=== PATIENT | male | born 1965 | race Hispanic/Latino ===

== ENCOUNTER 2017-05-13 13:43 | Observation (INO) | payer MEDICAID ==
--- NOTE | 2017-05-13 14:28 | C.PDOC ---
History Of Present Illness 51 y/o M c PMHx HTN, HLD, DM, gout, chronic back pain, Elyssa's thyroid disease, low testosterone (on androgel), multiple orthopedic surgeries, CKD p/w chest pain and bilateral leg swelling. Patient states both of his legs have swollen for 3 days. Has never had these symptoms before. Swelling improves with elevation of the legs. Denies trauma, redness or induration, injury, long travel , previous DVT. He states that last night, he began having a focal, L sided, sharp chest pain that has been constant, nonradiating, and not allieved or exacerbated by breathing or position. He does note that he seems to have to try harder to get a full breath. Denies previous PE. PMD [facility] Time Seen by Provider: 05/13/17 14:09 Chief Complaint (Nursing): Chest Pain Past Medical History Vital Signs: Last Vital Signs Temp 98.9 F 05/13/17 16:39 Pulse 75 05/13/17 16:39 Resp 16 05/13/17 16:39 BP 107/72 05/13/17 16:39 Pulse Ox 95 05/13/17 17:10 - Medical History PMH: Anxiety, Asthma, Back Problems, COPD, Depression, Diabetes, HTN, Hypercholesterolemia, Hyperlipidemia, Chronic Kidney Disease Family History: States: Unknown Family Hx - Social History Hx Tobacco Use: No Hx Alcohol Use: No Hx Substance Use: No - Immunization History Hx Tetanus Toxoid Vaccination: No Hx Influenza Vaccination: Yes Hx Pneumococcal Vaccination: Yes Review Of Systems Except As Marked, All Systems Reviewed And Found Negative. Constitutional: Negative for: Fever Cardiovascular: Positive for: Chest Pain Gastrointestinal: Negative for: Vomiting Physical Exam - Physical Exam Additional Physical Exam Comments: Constitutional: No acute distress. Head: Normocephalic. Atraumatic. Eyes: PERRL. ENT: Moist mucous membranes. Neck: Supple. Cardiovascular: Regular rate. Radial pulse 2+ bilaterally. Chest: No tenderness. Respiratory: Clear to auscultation bilaterally. GI: Soft. Nontender. Nondistended. Back: No CVA tenderness. Musculoskeletal: No tenderness of extremities. Bilateral pitting edema of lower extremities. Skin: No rash. Neurologic: Alert, no focal deficit. ED Course And Treatment - Laboratory Results Result Diagrams: 05/13/17 14:51 05/13/17 14:51 O2 Sat by Pulse Oximetry: 95 ED OBSERVATION Date of observation admission: 05/13/17 Time of observation admission: 14:24 - Observation admission statement Patient is being placed in observation because:: Chest pain Leg swelling - Goals of Observation Goals of observation are:: Monitoring pending CT. - Progress Note Progress Note: [address] No acute distress. [address] No acute distress. 1710 CT performed, pending read. Labs unremarkable. No acute distress. [address] scan with indeterminant read. No other explainable causes of chest pain/leg swelling. Discussed case with Dr. Henao who agrees with observation for V/Q scan to rule out PE. CTA chest PE protocol Indication: Chest pain, dyspnea, leg swelling Technique: Contiguous axial images were obtained through the chest with intravenous contrast enhancement. Sagittal and coronal reconstructions were generated and reviewed. This CT exam was performed using 1 or more of the falling dose reduction techniques: Automated exposure control, adjustment of the MAA and/or kV according to patient size, and/or use of iterative reconstruction technique. IV Contrast: 100 mL Visipaque Radiation dose (DLP): 649.76 MGy-cm. Comparison: Chest x-ray performed 02/07/16 Findings: Examination limited by habitus. Visualized portions of the inferior thyroid gland appear unremarkable. The mediastinal and hilar vascular structures appear within normal limits. The heart appears within normal limits of size. Small pericardial effusion. There is inadequate opacification of the pulmonary arteries due to missed bolus of the intravenous contrast precluding adequate evaluation for pulmonary embolus. The main pulmonary artery measures approximately 120 HU (suboptimal less than 200 HU). No focal consolidation. No pleural effusion. No pneumothorax. No suspicious pulmonary nodules measuring greater than 5 mm. Limited visualized portions of the upper abdomen appear grossly unremarkable. 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 Degenerative changes of the spine. Impression: Inadequate opacification of the pulmonary arteries precluding adequate evaluation for pulmonary embolus. Disposition Discussed With : Alyssa Henao Doctor Will See Patient In The: Hospital - Disposition Disposition: HOSPITALIZED Disposition Time: 18:32 Condition: FAIR - Clinical Impression Clinical Impression: Chest pain, Leg swelling
[2017-05-13 15:01] LABS: BASO # 0.1 K/uL (0.0-0.2); BASO % 0.7 % (0.0-2.0); EOS # 0.5 K/uL (0.0-0.7); EOS % 5.7 % (0.0-4.0); HEMATOCRIT 40.1 % (35.0-51.0); LYMPH # 1.8 K/uL (1.0-4.3); LYMPH % 19.1 % (20.0-40.0); MEAN CORPUSCULAR HEMOGLOBIN 29.9 pg (27.0-31.0); MEAN CORPUSCULAR HGB CONC 33.4 g/dL (33.0-37.0); MEAN PLATELET VOLUME 8.4 fL (7.2-11.7); MONO # 1.1 K/uL (0.0-0.8); MONO % 11.5 % (0.0-10.0); NRBC % 0.1 % (0.0-2.0); RED CELL DISTRIBUTION WIDTH 13.8 % (11.5-14.5); WHITE BLOOD COUNT 9.4 K/uL (4.8-10.8)
[2017-05-13 15:02] LABS: MEAN CELL VOLUME 89.6 fL (80.0-94.0)
[2017-05-13 15:08] LABS: CHLORIDE 98 mmol/L (98-107)
[2017-05-13 15:09] LABS: POTASSIUM 4.1 mmol/L (3.6-5.2); SODIUM 137 mmol/L (132-148)
[2017-05-13 15:11] LABS: ALB/GLOB RATIO 1.1 (1.0-2.1); AST/SGOT 26 U/L (17-59); BILIRUBIN,TOTAL 0.7 mg/dL (0.2-1.3); CARBON DIOXIDE 28 mmol/L (22-30); GFR AFRICAN-AMERICAN > 60
[2017-05-13 15:12] LABS: ALKALINE PHOSPHATASE 55 U/L (38-126); ALT/SGPT 21 U/L (21-72); BLOOD UREA NITROGEN 19 mg/dL (9-20); CALCIUM 9.1 mg/dl (8.6-10.4); GLUCOSE,RANDOM 118 mg/dL (75-110); INR 0.9; PARTIAL THROMBOPLASTIN TIME 33 SECONDS (21-34)
[2017-05-13] MEDS ORDERED: Iodixanol 320 mg/ml 150 ml Bottle IV ONE (15:55)
--- NOTE | 2017-05-13 17:15 | CT ---
CTA chest PE protocol Indication: Chest pain, dyspnea, leg swelling Technique: Contiguous axial images were obtained through the chest with intravenous contrast enhancement. Sagittal and coronal reconstructions were generated and reviewed. This CT exam was performed using 1 or more of the falling dose reduction techniques: Automated exposure control, adjustment of the MAA and/or kV according to patient size, and/or use of iterative reconstruction technique. IV Contrast: 100 mL Visipaque Radiation dose (DLP): 649.76 MGy-cm. Comparison: Chest x-ray performed 02/07/16 Findings: Examination limited by habitus. Visualized portions of the inferior thyroid gland appear unremarkable. The mediastinal and hilar vascular structures appear within normal limits. The heart appears within normal limits of size. Small pericardial effusion. There is inadequate opacification of the pulmonary arteries due to missed bolus of the intravenous contrast precluding adequate evaluation for pulmonary embolus. The main pulmonary artery measures approximately 120 HU (suboptimal less than 200 HU). No focal consolidation. No pleural effusion. No pneumothorax. No suspicious pulmonary nodules measuring greater than 5 mm. Limited visualized portions of the upper abdomen appear grossly unremarkable. 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 Degenerative changes of the spine. Impression: Inadequate opacification of the pulmonary arteries precluding adequate evaluation for pulmonary embolus.
[2017-05-13 19:47] VITALS: RESP 20
[2017-05-13] MEDS ORDERED: oxyCODONE 30 mg Immediate Release Tab PO STA (20:33)
[2017-05-13] MEDS ORDERED: oxyCODONE 30 mg Immediate Release Tab ONE (20:40)
[2017-05-13] MEDS: (Novolin R) Insulin Human Regular 100 units/ml vial SC SCH (22:14)
[2017-05-13] MEDS: Enoxaparin 120 mg Syringe SC SCH (22:43)
[2017-05-14] MEDS: Albuterol-Ipratrop 3 mg / 0.5 (3 ml) UD INH SCH ×4 (02:32→19:36)
[2017-05-14] MEDS: (Novolin R) Insulin Human Regular 100 units/ml vial SC SCH ×3 (06:49→16:52)
[2017-05-14 07:03] LABS: BASO # 0.1 K/uL (0.0-0.2); BASO % 0.6 % (0.0-2.0); EOS # 0.5 K/uL (0.0-0.7); EOS % 5.8 % (0.0-4.0); HEMATOCRIT 37.9 % (35.0-51.0); LYMPH # 2.2 K/uL (1.0-4.3); LYMPH % 25.4 % (20.0-40.0); MEAN CELL VOLUME 88.9 fL (80.0-94.0); MEAN CORPUSCULAR HGB CONC 33.8 g/dL (33.0-37.0); MEAN PLATELET VOLUME 8.4 fL (7.2-11.7); MONO # 1.2 K/uL (0.0-0.8); MONO % 14.4 % (0.0-10.0); WHITE BLOOD COUNT 8.5 K/uL (4.8-10.8)
[2017-05-14 07:30] LABS: CHLORIDE 98 mmol/L (98-107); POTASSIUM 3.9 mmol/L (3.6-5.2); SODIUM 138 mmol/L (132-148)
[2017-05-14 07:32] LABS: BILIRUBIN,TOTAL 0.7 mg/dL (0.2-1.3); GFR AFRICAN-AMERICAN > 60
[2017-05-14 07:33] LABS: ALB/GLOB RATIO 1.1 (1.0-2.1); ALKALINE PHOSPHATASE 46 U/L (38-126); ALT/SGPT 27 U/L (21-72); AST/SGOT 23 U/L (17-59); BLOOD UREA NITROGEN 18 mg/dL (9-20); CARBON DIOXIDE 31 mmol/L (22-30); GLUCOSE,RANDOM 112 mg/dL (75-110); TOTAL PROTEIN 7.1 g/dL (6.3-8.3)
[2017-05-14 07:34] LABS: CALCIUM 8.7 mg/dl (8.6-10.4)
--- NOTE | 2017-05-14 09:52 | NM ---
COMPARISON: CT chest yesterday History: Pulmonary embolism and shortness of breath TECHNIQUE: 10.5 mCi technetium 99-m Xe-133 Gas. 4.2 mCI technetium 99-m MAA administered intravenously. FINDINGS: VENTILATION COMPONENT: No focal ventilation defect identified on early single breath imaging or equilibrium breathing. Minor amount of persistent washout is identified. No segmental ventilation defects seen. PERFUSION COMPONENT: No segmental perfusion defect appreciated. No significant subsegmental perfusion defect noted. No V/Q mismatch appreciated. IMPRESSION: Low probability for pulmonary embolism. No appreciable V/Q mismatch or segmental perfusion defect.
[2017-05-14 10:00] VITALS: O2SAT 95
[2017-05-14] MEDS ORDERED: Multiple Vitamins Tab PO SCH (10:00)
[2017-05-14] MEDS ORDERED: Pantoprazole 40 mg EC Tab PO SCH (10:00)
[2017-05-14] MEDS: Enoxaparin 120 mg Syringe SC SCH (10:04)
[2017-05-14] MEDS: oxyCODONE 30 mg Immediate Release Tab PO SCH ×3 (10:07→17:52)
--- NOTE | 2017-05-14 16:29 | VASCLAB ---
PROCEDURE: Lower Extremity Venous Duplex Exam. HISTORY: bilateral leg swelling PRIORS: None. TECHNIQUE: Bilateral common femoral, femoral, popliteal and posterior tibial, peroneal and great saphenous veins were evaluated. Flow was assessed with color Doppler, compressibility, assessment of phasic flow and augmentation response. Report prepared by Jeison Macias, MAGDALENA, RVT FINDINGS: RIGHT: 1. Common Femoral Vein: 1.1. Compressibility - Fully compressible: Thrombus - None : Flow - Phasic: Augmentation -Normal: Reflux - None. 2. Femoral Vein: 2.1. Compressibility - Fully compressible: Thrombus - None : Flow - Phasic: Augmentation -Normal: Reflux - None. 3. Popliteal Vein: 3.1. Compressibility - Fully compressible: Thrombus - None : Flow - Phasic: Augmentation -Normal: Reflux - None. 4. Posterior Tibial Vein: 4.1. Compressibility - Fully compressible: Thrombus - None: Flow - Phasic: Augmentation -Normal: Reflux - None. 5. Peroneal Vein: 5.1. Compressibility - Fully compressible: Thrombus - None: Flow - Phasic: Augmentation -Normal: Reflux - None. 6. Great Saphenous Vein: 6.1. Compressibility - Fully compressible: Thrombus - None: Flow - Phasic: Augmentation - Normal: Reflux - None. LEFT: 1. Common Femoral Vein: 1.1. Compressibility - Fully compressible: Thrombus - None: Flow - Phasic: Augmentation -Normal: Reflux - None. 2. Femoral Vein: 2.1. Compressibility - Fully compressible: Thrombus - None: Flow - Phasic: Augmentation -Normal: Reflux - None. 3. Popliteal Vein: 3.1. Compressibility - Fully compressible: Thrombus - None : Flow - Phasic: Augmentation -Normal: Reflux - None. 4. Posterior Tibial Vein: 4.1. Compressibility - Fully compressible: Thrombus - None: Flow - Phasic: Augmentation -Normal: Reflux - None. 5. Peroneal Vein: 5.1. Compressibility - Fully compressible: Thrombus - None: Flow - Phasic: Augmentation -Normal: Reflux - None. 6. Great Saphenous Vein: 6.1. Compressibility - Fully compressible: Thrombus - None: Flow - Phasic: Augmentation - Normal: Reflux - None. OTHER FINDINGS: Right: None significant. Left: None significant. IMPRESSION: Right: No evidence of deep or superficial vein thrombosis of the right lower extremity. Normal valve function noted of the right side. Left: No evidence of deep or superficial vein thrombosis of the left lower extremity. Normal valve function noted of the left side.
[2017-05-14 16:54] VITALS: BP 136/86; PULSE 83; TEMP 98.2
--- NOTE | 2017-05-14 17:35 | CP.PCM.HP ---
Past Patient History - Infectious Disease Hx of Infectious Diseases: None - Past Medical History & Family History Past Medical History?: Yes - Past Social History Smoking Status: Never Smoked - CARDIAC Hx Cardiac Disorders: Yes Hx Hypercholesterolemia: Yes Hx Hypertension: Yes - PULMONARY Hx Respiratory Disorders: Yes Hx Asthma: Yes Hx Chronic Obstructive Pulmonary Disease (COPD): Yes - NEUROLOGICAL Hx Neurological Disorder: No - HEENT Hx HEENT Problems: No - RENAL Hx Chronic Kidney Disease: Yes - ENDOCRINE/METABOLIC Hx Endocrine Disorders: Yes Hx Diabetes Mellitus Type 2: Yes Hx Hypothyroidism: Yes - HEMATOLOGICAL/ONCOLOGICAL Hx Blood Disorders: No - INTEGUMENTARY Hx Dermatological Problems: No - MUSCULOSKELETAL/RHEUMATOLOGICAL Hx Musculoskeletal Disorders: Yes Hx Falls: Yes Hx Gout: Yes - GASTROINTESTINAL Hx Gastrointestinal Disorders: No - GENITOURINARY/GYNECOLOGICAL Hx Genitourinary Disorders: No - PSYCHIATRIC Hx Anxiety: Yes Hx Depression: Yes Hx Substance Use: No - SURGICAL HISTORY Hx Surgeries: Yes Hx Orthopedic Surgery: Yes (LEFT KNEE ARTHROSCOPY) Other/Comment: four knees surgeries. - ANESTHESIA Hx Anesthesia: Yes Hx Anesthesia Reactions: No Hx Malignant Hyperthermia: No Has any member of the family had a problem w/ anesthesia?: No Meds Allergies/Adverse Reactions: Allergies Allergy/AdvReac Type Severity Reaction Status Date / Time No Known Allergies Allergy Verified 05/13/17 14:02 Results - Vital Signs Recent Vital Signs: Last Vital Signs Temp 98.2 F 05/14/17 16:52 Pulse 83 05/14/17 16:52 Resp 20 05/14/17 16:52 BP 136/86 05/14/17 16:52 Pulse Ox 95 05/14/17 16:52 - Labs Result Diagrams: 05/14/17 06:56 05/14/17 06:56 Labs: Laboratory Results - last 24 hr 05/13/17 05/14/17 05/14/17 21:52 06:12 06:56 WBC 8.5 RBC 4.27 L Hgb 12.8 Hct 37.9 MCV 88.9 MCH 30.0 MCHC 33.8 RDW 14.0 Plt Count 215 MPV 8.4 Neut % (Auto) 53.8 Lymph % (Auto) 25.4 [place] % (Auto) 14.4 H Eos % (Auto) 5.8 H Baso % (Auto) 0.6 Neut # 4.6 Lymph # 2.2 [place] # 1.2 H Eos # 0.5 Baso # 0.1 Sodium Potassium Chloride Carbon Dioxide Anion Gap BUN Creatinine Est GFR ( Amer) Est GFR (Non-Af Amer) POC Glucose (mg/dL) 133 H 111 H Random Glucose Calcium Total Bilirubin AST ALT Alkaline Phosphatase Total Protein Albumin Globulin Albumin/Globulin Ratio 05/14/17 05/14/17 05/14/17 06:56 11:01 16:29 WBC RBC Hgb Hct MCV MCH MCHC RDW Plt Count MPV Neut % (Auto) Lymph % (Auto) [place] % (Auto) Eos % (Auto) Baso % (Auto) Neut # Lymph # [place] # Eos # Baso # Sodium 138 Potassium 3.9 Chloride 98 Carbon Dioxide 31 H Anion Gap 13 BUN 18 Creatinine 1.2 Est GFR ( Amer) > 60 Est GFR (Non-Af Amer) > 60 POC Glucose (mg/dL) 149 H 139 H Random Glucose 112 H Calcium 8.7 Total Bilirubin 0.7 AST 23 ALT 27 Alkaline Phosphatase 46 Total Protein 7.1 Albumin 3.7 Globulin 3.4 Albumin/Globulin Ratio 1.1
[2017-05-14] MEDS ORDERED: AZELASTINE HCL 137 MCG NS PRN (17:42)
[2017-05-14] MEDS ORDERED: INSULIN REGULAR HUMAN IH PRN (17:42)
[2017-05-14] MEDS ORDERED: Albuterol 0.083% Inhal Sol (2.5 mg/3 mL) UD IH PRN (17:42)
[2017-05-14] MEDS ORDERED: Home Med 1 UNIT (Linaclotide [Linzess] 145 MCG) PO PRN (17:42)
[2017-05-14] MEDS ORDERED: MORPHINE 30 MG PO SCH (18:00)
[2017-05-15] MEDS ORDERED: Omega-3-Acid Ethyl Esters 1 GM Cap PO SCH (10:00)
[2017-05-15] MEDS ORDERED: Pneumococcal 23-Valent Vaccine IM ONE (10:00)
[2017-05-15] MEDS ORDERED: TESTOSTERONE TP SCH (10:00)
[2017-05-21] MEDS ORDERED: LIXISENATIDE SQ SCH (10:00)
[2017-05-21] MEDS ORDERED: INSULIN GLARGINE SQ SCH (10:00)
[2017-05-21] MEDS ORDERED: Ergocalciferol 50,000 Intl Units Cap PO SCH (10:00)
== END 2017-05-14 19:00 | disposition home or self-care (01) ==
LOC: C.ER 13:43 → C.9OBSV 14:24 → C.9E 18:52 → C.6T 20:10
PROVIDERS: ADMIT Internal Medicine Critical Care Medicine; ATTEND Internal Medicine Critical Care Medicine
DX: R07.9 Chest pain, unspecified (principal); M79.89 Other specified soft tissue disorders; J44.9 Chronic obstructive pulmonary disease, unspecified; E06.3 Autoimmune thyroiditis; I12.9 Hypertensive chronic kidney disease with stage 1 through stage 4 chronic kidney disease, or unspecified chronic kidney disease; N18.9 Chronic kidney disease, unspecified; E11.22 Type 2 diabetes mellitus with diabetic chronic kidney disease; E78.5 Hyperlipidemia, unspecified; M10.9 Gout, unspecified
CPT/HCPCS: 36415; 71275; 78582; 80053; 82550; 82553; 82948; 83880; 84484; 85025; 85378; 85610; 85730; 93970; 94150; 94640; 94660; 99285; A9524; A9558; G0378; J1650; Q9965

== ENCOUNTER 2017-10-08 11:11 | Emergency (ER) | payer OTHER ==
[2017-10-08 11:31] VITALS: O2SAT 95
--- NOTE | 2017-10-08 13:32 | CT ---
PROCEDURE: CT of the Right Hip. HISTORY: severe atraumatic hip pain COMPARISON: None available. TECHNIQUE: Contiguous axial images of the right hip were obtained. Coronal and sagittal reformats were generated. This CT exam was performed using one or more of the following dose reduction techniques: Automated exposure control, adjustment of the mA and/or kV according to patient size, and/or use of iterative reconstruction technique. FINDINGS: BONES: The acetabulum and the femoral head of the left hip joint appear intact although cortical sclerosis appreciate weight-bearing portions pattern of degenerative joint disease. No fractures appreciated throughout the proximal femur or visualized left hemipelvis from the ischium up to the mid iliac bone. Degenerative changes are incidentally captured the left sacroiliac joint. No destructive bony lesion is identified. No suspicious fluid collection. No distended greater trochanter bursitis appreciated. RIGHT HIP JOINT: Discussed above. SOFT TISSUES: Incidental sigmoid diverticulosis partially captured. No definite acute local soft tissues findings related. IMPRESSION: Limited degenerative joint disease. No fracture subluxation or dislocation identified left hip joint. Consider follow-up left hip MRI if clinically warranted.
--- NOTE | 2017-10-08 14:07 | C.PDOC ---
History Of Present Illness 52 year old male presents to the ER with a complaint of chronic left hip pain that was exacerbated today while at the [facility]. Patient states the pain got so bad he could not walk and had to be brought in by EMS. Patient has a Hx of left hip pain for several years and had an MRI done on 2014 that said he has arthritic and ligament changes; a month ago the pain began to worsen and went to have another MRI but was told he does not fit in the machine. Patient is currently waiting for another appointment; denies weakness or numbness. Chief Complaint (Nursing): Lower Extremity Problem/Injury History Per: Patient History/Exam Limitations: no limitations Onset/Duration Of Symptoms: Hrs Current Symptoms Are (Timing): Still Present Recent travel outside of the [place]: No Past Medical History Reviewed: Historical Data, Nursing Documentation, Vital Signs Vital Signs: Last Vital Signs Temp 97.9 F 10/08/17 14:20 Pulse 88 10/08/17 14:20 Resp 20 10/08/17 14:20 BP 127/83 10/08/17 14:20 Pulse Ox 95 10/08/17 14:20 - Medical History PMH: Anxiety, Asthma, Back Problems, COPD, Depression, Diabetes, HTN, Hypercholesterolemia, Hyperlipidemia, Hypothyroidism, Chronic Kidney Disease Surgical History: No Surg Hx Family History: States: Unknown Family Hx - Social History Hx Tobacco Use: No Hx Alcohol Use: No Hx Substance Use: No - Immunization History Hx Tetanus Toxoid Vaccination: No Hx Influenza Vaccination: Yes Hx Pneumococcal Vaccination: Yes Review Of Systems Musculoskeletal: Positive for: Other (Left hip pain) Skin: Negative for: Other (Erythema/Swelling) Neurological: Negative for: Weakness, Numbness Physical Exam - Physical Exam Appears: Non-toxic, No Acute Distress Skin: Normal Color, Warm, Dry Head: Atraumatic, Normacephalic Extremity: Tenderness (Lateral left hip), No Swelling, No Other (Erythema) Neurological/Psych: Oriented x3, Normal Speech, Normal Cognition, Normal Motor, Normal Sensation ED Course And Treatment O2 Sat by Pulse Oximetry: 95 (room air) Pulse Ox Interpretation: Normal - CT Scan/US Lower extremity CT Other Rad Studies (CT/US): Read By Radiologist, Radiology Report Reviewed CT/US Interpretation: ADDENDUM: The title of the CT is incorrect it should read CT left hip. The examination is capturing the left hip and not the right. [ Addendum Report Added by Harman Escobar MD at 10/08/2017 15:07:15 ]. PROCEDURE: CT of the Right Hip. HISTORY: severe atraumatic hip pain. COMPARISON: None available. TECHNIQUE: Contiguous axial images of the right hip were obtained. Coronal and sagittal reformats were generated. This CT exam was performed using one or more of the following dose reduction techniques: Automated exposure control, adjustment of the mA and/or kV according to patient size, and/or use of iterative reconstruction technique. FINDINGS: BONES: The acetabulum and the femoral head of the left hip joint appear intact although cortical sclerosis appreciate weight-bearing portions pattern of degenerative joint disease. No fractures appreciated throughout the proximal femur or visualized left hemipelvis from the ischium up to the mid iliac bone. Degenerative changes are incidentally captured the left sacroiliac joint. No destructive bony lesion is identified. No suspicious fluid collection. No distended greater trochanter bursitis appreciated. RIGHT HIP JOINT: Discussed above. SOFT TISSUES: Incidental sigmoid diverticulosis partially captured. No definite acute local soft tissues findings related. IMPRESSION: Limited degenerative joint disease. No fracture subluxation or dislocation identified left hip joint. Consider follow-up left hip MRI if clinically warranted. Progress Note: Patient requests CT until MRI can get done. Patient is on pain management at home, IM dilaudid administered. CT was negative for abnormalities , on reevaluation patient reports improvement of pain and is ambulatory in the ER, will discharge home with instructions to follow up with PMD. Disposition - Disposition Referrals: Juancarlos Bailey DO [Staff Provider] - Disposition: HOME/ ROUTINE Disposition Time: 14:06 Condition: STABLE Additional Instructions: Follow up with your PMD and Orthopedist within 1-2 days. Return to ED if feel worse. Instructions: Hip Pain (ED) Forms: [employer] (Belarusian) - Clinical Impression Clinical Impression: Hip pain - Scribe Statement The provider has reviewed the documentation as recorded by the Scribe Jeison Paulino All medical record entries made by the Scribe were at my direction and personally dictated by me. I have reviewed the chart and agree that the record accurately reflects my personal performance of the history, physical exam, medical decision making, and the department course for this patient. I have also personally directed, reviewed, and agree with the discharge instructions and disposition.
[2017-10-08 14:37] VITALS: BP 127/83; PULSE 88; RESP 20; TEMP 97.9
== END 2017-10-08 14:25 | disposition home or self-care (01) ==
LOC: C.ER 11:11
DX: M25.552 Pain in left hip (principal)
CPT/HCPCS: 73700; 96372; 99284; J1170

== ENCOUNTER 2017-12-15 09:16 | Emergency (ER) | payer MEDICAID ==
[2017-12-15 09:31] VITALS: RESP 18
[2017-12-15] MEDS ORDERED: Sodium Chloride 0.9% 1,000 ML IV ONE (10:26)
[2017-12-15 10:43] LABS: BASO # 0.1 K/uL (0.0-0.2); BASO % 1.2 % (0.0-2.0); EOS # 0.5 K/uL (0.0-0.7); HEMOGLOBIN 14.6 g/dL (12.0-18.0); LYMPH % 24.2 % (20.0-40.0); MEAN CELL VOLUME 90.1 fL (80.0-94.0); MEAN CORPUSCULAR HEMOGLOBIN 30.8 pg (27.0-31.0); MEAN CORPUSCULAR HGB CONC 34.2 g/dL (33.0-37.0); MEAN PLATELET VOLUME 8.9 fL (7.2-11.7); MONO # 0.8 K/uL (0.0-0.8); MONO % 9.7 % (0.0-10.0); NEUT # 4.8 K/uL (1.8-7.0); NEUT % 58.9 % (50.0-75.0); NRBC % 0.1 % (0.0-2.0); RBC 4.75 Mil/uL (4.40-5.90); RED CELL DISTRIBUTION WIDTH 13.3 % (11.5-14.5); WHITE BLOOD COUNT 8.1 K/uL (4.8-10.8)
[2017-12-15 10:53] LABS: SQUAMOUS EPITHIAL < 1 /hpf (0-5); URINE BILIRUBIN NEGATIVE (NEGATIVE); URINE BLOOD NEGATIVE (NEGATIVE); URINE CLARITY Clear (Clear); URINE COLOR Yellow (YELLOW); URINE GLUCOSE (UA) NORMAL (Normal); URINE LEUKOCYTE ESTERASE NEG Leu/uL (Negative); URINE NITRATE NEGATIVE (NEGATIVE); URINE PROTEIN 1+ mg/dL (NEGATIVE); URINE UROBILINOGEN NORMAL mg/dL (0.2-1.0)
[2017-12-15 10:55] LABS: ALB/GLOB RATIO 1.1 (1.0-2.1); ALBUMIN 4.2 g/dL (3.5-5.0); ALT/SGPT 30 U/L (21-72); AMYLASE 52 U/L (30-110); AST/SGOT 25 U/L (17-59); BLOOD UREA NITROGEN 15 mg/dL (9-20); CALCIUM 8.8 mg/dl (8.6-10.4); GFR AFRICAN-AMERICAN > 60; GFR NON-AFRICAN AMERICAN > 60; LIPASE 101 U/L (23-300)
--- NOTE | 2017-12-15 10:57 | C.PDOC ---
History Of Present Illness 52yo male, presents to ED with complaints of abdominal pain described as a "spasm" for the past week. He reports pain is mainly to his left upper quadrant but also radiates to his lower abdomen. He also states he has been constipated but had a small and hard bowel movement yesterday. He denies any nausea, vomiting. Of note, patient has a history of chronic pain and is on an oxycodone regimen for pain management. He denies any fever or chills. Time Seen by Provider: 12/15/17 10:01 Chief Complaint (Nursing): Abdominal Pain History Per: Patient History/Exam Limitations: no limitations Onset/Duration Of Symptoms: Days (1 week) Current Symptoms Are (Timing): Still Present Location Of Pain/Discomfort: LUQ Quality Of Discomfort: "Pain", Other (spasm) Associated Symptoms: Constipation. denies: Fever, Chills Additional History Per: Patient Past Medical History Reviewed: Historical Data, Nursing Documentation, Vital Signs Vital Signs: Last Vital Signs Temp 98.3 F 12/15/17 14:03 Pulse 95 H 12/15/17 14:03 Resp 18 12/15/17 14:03 BP 139/78 12/15/17 14:03 Pulse Ox 95 12/15/17 14:03 - Medical History PMH: Anxiety, Asthma, Back Problems, COPD, Depression, Diabetes, HTN, Hypercholesterolemia, Hyperlipidemia, Hypothyroidism, Chronic Kidney Disease Family History: States: Unknown Family Hx - Social History Hx Tobacco Use: No Hx Alcohol Use: No Hx Substance Use: No - Immunization History Hx Tetanus Toxoid Vaccination: No Hx Influenza Vaccination: Yes Hx Pneumococcal Vaccination: Yes Review Of Systems Constitutional: Negative for: Fever, Chills Eyes: Negative for: Vision Change Cardiovascular: Negative for: Palpitations Respiratory: Negative for: Cough, Shortness of Breath Gastrointestinal: Positive for: Abdominal Pain ("spasm"), Constipation. Negative for: Nausea, Vomiting, Diarrhea Musculoskeletal: Negative for: Back Pain Skin: Negative for: Rash Neurological: Negative for: Weakness, Numbness, Headache, Dizziness Physical Exam - Physical Exam Appears: Non-toxic, No Acute Distress Skin: Normal Color, Warm, Dry, No Diaphoretic, No Pale, No Rash Head: Atraumatic, Normacephalic Eye(s): bilateral: Normal Inspection, EOMI Nose: Normal Oral Mucosa: Moist Neck: Supple Cardiovascular: Rhythm Regular, No Murmur Respiratory: Normal Breath Sounds, No Accessory Muscle Use, No Rales, No Rhonchi , No Wheezing Gastrointestinal/Abdominal: Soft, Tenderness (left upper quadrant tenderness), No Mass, No Guarding, No Rebound, Other (obese abdomen) Back: Normal Inspection, No CVA Tenderness Extremity: Bilateral: Atraumatic, Normal ROM Neurological/Psych: Oriented x3, Normal Speech Gait: Steady ED Course And Treatment - Laboratory Results Result Diagrams: 12/15/17 10:37 12/15/17 10:37 Lab Interpretation: Abnormal O2 Sat by Pulse Oximetry: 96 (RA) Pulse Ox Interpretation: Normal Medical Decision Making Medical Decision Making: Impression: Abdominal pain Plan: -- CT AP w/ IV Contrast -- Labs -- IV Fluids -- Toradol 30mg IV Progress: Labs show hyperglycemia and low sodium, normal when corrected. CT IMPRESSION: Diverticulosis without CT evidence of acute diverticulitis. Moderate constipation. Probable right renal cysts. Partially imaged small pericardial effusion. Additional findings as above. Re-Eval: Patient is resting comfortably on stretcher in no distress. He reports abdominal pain has resolved now. Abdomen is soft and nontender. Discussed results with patient, and copy of report was provided. I advised dietary changes. Patient feels comfortable going home and will be discharged. Patient given follow up instructions. Instructed to return to ER if symptoms worsen or new symptoms arise. Disposition Counseled Patient/Family Regarding: Studies Performed, Diagnosis, Need For Followup, Rx Given - Disposition Referrals: Juancarlos Bailey DO [Staff Provider] - Disposition: HOME/ ROUTINE Disposition Time: 13:42 Condition: IMPROVED Additional Instructions: Your labs were normal and CT of abdomen shows constipation, diverticulosis no infection Recommend drinking more water and increase in fiber intake to help with constipation Take medications as prescribed Follow up with your primary medical doctor or clinic in 1 week for further evaluation. Prescriptions: Dicyclomine [Bentyl] 10 mg PO QID #20 cap Docusate [Colace] 100 mg PO TID PRN #30 cap PRN Reason: Constipation Magnesium Citrate [Citrate of Mag] 300 ml PO ONCE PRN #1 bottle PRN Reason: Constipation Instructions: Constipation (DC), Diverticulosis Diet (ED) Forms: [employer] (Citizen Of [place]) - POA Present On Arrival: None - Clinical Impression Clinical Impression: Diverticulosis, Constipation - PA / [employer] / Resident Statement MD/DO has reviewed & agrees with the documentation as recorded. - Scribe Statement The provider has reviewed the documentation as recorded by the Huagn Royal Provider Ramakrishnaibdonato Attestation: All medical record entries made by the Huang were at my direction and personally dictated by me. I have reviewed the chart and agree that the record accurately reflects my personal performance of the history, physical exam, medical decision making, and the department course for this patient. I have also personally directed, reviewed, and agree with the discharge instructions and disposition.
[2017-12-15] MEDS ORDERED: Sodium Chloride 0.9% 1,000 ML ONE (11:12)
[2017-12-15] MEDS ORDERED: Iohexol 350mg/ml 100 ML ONE (11:47)
--- NOTE | 2017-12-15 13:26 | CT ---
PROCEDURE: CT Abdomen and Pelvis with contrast HISTORY: left side abd pain COMPARISON: None. TECHNIQUE: Contrast dose: 100 mL Omnipaque 350 Radiation dose: Total exam DLP = 1353.42 mGy-cm. This CT exam was performed using one or more of the following dose reduction techniques: Automated exposure control, adjustment of the mA and/or kV according to patient size, and/or use of iterative reconstruction technique. FINDINGS: LOWER THORAX: No visible consolidation, pleural effusion, or pneumothorax. Partially imaged small pericardial effusion. LIVER: Unremarkable. GALLBLADDER AND BILE DUCTS: Unremarkable. PANCREAS: Unremarkable. SPLEEN: 13 mm probable splenule. Otherwise unremarkable. ADRENALS: Unremarkable. KIDNEYS AND URETERS: The kidneys enhance symmetrically. No hydronephrosis or obstructing calculus identified. Numerous low-density lesions within the right kidney largest appearing exophytic at the right lower pole; lesions appear cystic VASCULATURE: No aortic aneurysm. BOWEL: Stomach is nondistended. Lack of oral contrast limits evaluation for bowel pathology. Bowel loops appear within normal limits of caliber without evidence of obstruction. Moderate diffuse constipation. Diverticulosis without CT evidence of acute diverticulitis. APPENDIX: The appendix appears within normal limits of caliber. No secondary signs of acute appendicitis. PERITONEUM: No significant free fluid. No definite free air. LYMPH NODES: No bulky adenopathy identified. BLADDER: Unremarkable. REPRODUCTIVE: Unremarkable. BONES: Degenerative changes of the spine. OTHER FINDINGS: Ctsm-odgxbqj-ysiz-right fat containing inguinal hernias. Tiny fat containing umbilical hernia. Minimal subcutaneous stranding adjacent to the umbilicus bilaterally, nonspecific. IMPRESSION: Diverticulosis without CT evidence of acute diverticulitis. Moderate constipation. Probable right renal cysts. Partially imaged small pericardial effusion. Additional findings as above.
[2017-12-15 14:04] VITALS: BP 139/78; PULSE 95; TEMP 98.3
[2017-12-18 22:07] VITALS: O2SAT 96
== END 2017-12-15 14:10 | disposition home or self-care (01) ==
LOC: C.ER 09:16
DX: K57.90 Diverticulosis of intestine, part unspecified, without perforation or abscess without bleeding (principal); K59.00 Constipation, unspecified; I10 Essential (primary) hypertension; E78.00 Pure hypercholesterolemia, unspecified; E11.9 Type 2 diabetes mellitus without complications
CPT/HCPCS: 74177; 80053; 81001; 82150; 83690; 85025; 96361; 96374; 99285; J1885; J7040; Q9967

== ENCOUNTER → 2018-01-05 12:05 | Emergency (ER) | payer MEDICAID | END | disposition left against medical advice (07) | LOC: C.ER 12:05 | DX: Z02.89 Encounter for other administrative examinations (principal); M25.511 Pain in right shoulder ==

== ENCOUNTER 2018-01-20 10:34 | Emergency (ER) | payer MEDICAID ==
[2018-01-20 11:10] VITALS: BMI 38.7
[2018-01-20 11:14] VITALS: BP 138/87; PULSE 74; RESP 18; TEMP 98.1; O2SAT 96
--- NOTE | 2018-01-20 11:21 | C.PDOC ---
History Of Present Illness <Jese Romano M - Last Filed: 01/20/18 12:15> <Ronal Gomez S - Last Filed: 01/20/18 14:28> This is a 52y/o M with extensive pmhx including DM/HTN/HLD/CKD3/Hoshimotos who is presenting with right shoulder pain s/p fall yesterday evening when he tripped on boxes. He states he fell forward with outstretched right arm to brace his fall and hurt his shoulder. He has preexisting injuries to this area including clavicle fx healed non-surgically, SLAP tear, supraspinatus/ infraspinatus tears. He has previously seen [facility] for this. He states his pain is well controlled by home pain meds that he takes for chronic conditions. Requesting imaging w/ c/o rotator damage. He complains of pain down the lateral aspect of the upper extremity; down to the thumb. pmhx: DM/HTN/HLD/CKD3/Hoshimotos/Karma/asthma/extensive MSK injuries including the ones mentioned above Meds:oxycodone 30mg q8hrs/morphine 30mg q8hrs/gabapentin/metformin/duloxetine/ hydroxyzine/androgel/simvastatin/horizant/tricor/coreg/omeprazole (Ronal Gomez) Past Medical History - Medical History PMH: Anxiety, Asthma, Back Problems, COPD, Depression, Diabetes, HTN, Hypercholesterolemia, Hyperlipidemia, Hypothyroidism, Chronic Kidney Disease Family History: States: Unknown Family Hx - Social History Hx Tobacco Use: No Hx Alcohol Use: No Hx Substance Use: No - Immunization History Hx Tetanus Toxoid Vaccination: No Hx Influenza Vaccination: Yes Hx Pneumococcal Vaccination: Yes <Ronal Gomez S - Last Filed: 01/20/18 14:28> Vital Signs: Last Vital Signs Temp 98.1 F 01/20/18 11:10 Pulse 74 01/20/18 11:10 Resp 18 01/20/18 11:10 BP 138/87 01/20/18 11:10 Pulse Ox 96 01/20/18 11:32 Review Of Systems Constitutional: Negative for: Fever, Chills Respiratory: Negative for: Cough, Shortness of Breath Gastrointestinal: Negative for: Nausea, Vomiting, Abdominal Pain Musculoskeletal: Positive for: Other (right shoulder pain) Neurological: Positive for: Weakness (right arm). 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 He was taken for xray of the R shoulder which did not show any acute fx but did show old findings consistent with previous injuries. The patient is already taking extensive opioids for chronic pain which were controlling his current symptoms. No further medications were administered. He was asked to follow up with his PMD and orthopedist within 1 week. He was asked to return to ED if his symptoms worsened. Case discussed with Dr. Sawant (Ronal Gomez) Disposition - Disposition Disposition Time: 12:15 <Jese Romano - Last Filed: 01/20/18 12:15> Discussed With : Jese Romano Doctor Will See Patient In The: ED <Ronal Gomez - Last Filed: 02/27/18 14:28> - Disposition Disposition: HOME/ ROUTINE Condition: STABLE Additional Instructions: follow up with your doctor in 2 days call to make an appointment take medications as prescribed return to ER if symptoms worsens or progress Instructions: Shoulder Sprain, Clavicle Fracture Forms: General Discharge Instructions, [facility] (Burkinan) - Clinical Impression Clinical Impression: Clavicle fracture, shaft, Sprain Critical Care Time
--- NOTE | 2018-01-20 12:37 | RAD ---
PROCEDURE: Radiographs of the Right Shoulder HISTORY: trauma with right shoulder pain COMPARISON: 08/11/2015 FINDINGS: BONES: There is redemonstration of old deformity in the midshaft of the clavicle with distraction. There is no acute displaced fracture or bone destruction. Bone alignment is normal. JOINTS: Normal. Glenohumeral and acromioclavicular joints preserved. No osteoarthritis. SOFT TISSUES: Normal. OTHER FINDINGS: None. IMPRESSION: Old deformity in the midshaft of the clavicle. No acute fracture or dislocation.
== END 2018-01-20 12:28 | disposition home or self-care (01) ==
LOC: C.ER 10:34
DX: S43.401A Unspecified sprain of right shoulder joint, initial encounter (principal); S42.001A Fracture of unspecified part of right clavicle, initial encounter for closed fracture; W01.0XXA Fall on same level from slipping, tripping and stumbling without subsequent striking against object, initial encounter

== ENCOUNTER 2018-03-25 18:59 | Emergency (ER) | payer MEDICAID ==
[2018-03-25 18:59] VITALS: BMI 38.7
[2018-03-25] MEDS: Sodium Chloride 0.9% 1,000 ML IV ONE ×2 (19:50→21:21)
--- NOTE | 2018-03-25 20:01 | C.PDOC ---
History Of Present Illness The patient is a 52 year old male whose PMHx includes chronic pain syndrome and has been on a Narcotic regiment for the past 7 years. Patient notes he periodically experiences constipation, but usually manages symptoms by drinking prune juice at home. In 11/2017, patient was evaluated for a spasmotic pain to his left upper quadrant and was diagnosed with diverticulosis and constipation. He was discharged home with prescriptions for stool softeners, magnesium citrate and Bentyl. Since the visit, patient has continued experiencing intermittent spasms that resolve after taking Bentyl. Patient notes he recently ran out of Bentyl and the spasms have returned. Patient was evaluated by his PMD , Dr. Bailey, who referred him to a telecommunications cable jointer to undergo a colonoscopy which patient has not yet undergone. Patient notes he took some leftover Ciproflaxin without relief. He denies fever, chills. Time Seen by Provider: 03/25/18 19:38 Chief Complaint (Nursing): Abdominal Pain History Per: Patient History/Exam Limitations: no limitations Onset/Duration Of Symptoms: Days Current Symptoms Are (Timing): Still Present Location Of Pain/Discomfort: LUQ Quality Of Discomfort: Other (spasm ) Associated Symptoms: denies: Fever, Chills Additional History Per: Patient Past Medical History Reviewed: Historical Data, Nursing Documentation, Vital Signs Vital Signs: Last Vital Signs Temp 98.8 F 03/25/18 21:26 Pulse 82 03/25/18 21:26 Resp 20 03/25/18 21:26 BP 115/75 03/25/18 21:26 Pulse Ox 95 03/25/18 21:26 - Medical History PMH: Anxiety, Asthma, Back Problems, COPD, Depression, Diabetes, HTN, Hypercholesterolemia, Hyperlipidemia, Hypothyroidism, Chronic Kidney Disease Surgical History: No Surg Hx Family History: States: Unknown Family Hx - Social History Hx Tobacco Use: No Hx Alcohol Use: No Hx Substance Use: No - Immunization History Hx Tetanus Toxoid Vaccination: No Hx Influenza Vaccination: Yes Hx Pneumococcal Vaccination: Yes Review Of Systems Constitutional: Negative for: Fever, Chills Gastrointestinal: Positive for: Abdominal Pain (left upper quadrant ) Physical Exam - Physical Exam Appears: Non-toxic, No Acute Distress Skin: Normal Color, Warm, Dry Head: Atraumatic, Normacephalic Eye(s): bilateral: Normal Inspection Oral Mucosa: Moist Neck: Supple Chest: Symmetrical, No Deformity, No Tenderness Cardiovascular: Rhythm Regular, No Murmur Respiratory: Normal Breath Sounds, No Rales, No Rhonchi, No Wheezing Gastrointestinal/Abdominal: Soft, No Tenderness, No Guarding, No Rebound Extremity: Normal ROM, Capillary Refill (less than 2 seconds ) Neurological/Psych: Oriented x3, Normal Speech, Normal Cognition ED Course And Treatment - Laboratory Results Result Diagrams: 03/25/18 19:54 03/25/18 19:54 Lab Interpretation: Abnormal (BUN 25, glucose 283) O2 Sat by Pulse Oximetry: 96 (on RA) Pulse Ox Interpretation: Normal - Other Rad Obstructive series X-Ray: Interpreted by Me Interpretation: Normal bowel gas pattern with increased stool volume in descending colon. Progress Note: Bloodwork, urinalysis, Obstructive Series Abdomen ordered and reviewed. IV Fluids administered. Reevaluation Time: 21:46 Reassessment Condition: Improved Disposition Counseled Patient/Family Regarding: Studies Performed, Diagnosis, Need For Followup, Rx Given - Disposition Referrals: Juancarlos Bailey DO [Staff Provider] - Disposition: HOME/ ROUTINE Disposition Time: 21:47 Condition: IMPROVED Additional Instructions: Continue taking OTC remedies for constipation. Prescriptions: Dicyclomine [Bentyl] 20 mg PO QID PRN #20 tab PRN Reason: Pain, Moderate (4-7) Instructions: Constipation in Adults Forms: [facility] (Northern Irish) - Clinical Impression Clinical Impression: Constipation, Abdominal pain - Scribe Statement The provider has reviewed the documentation as recorded by the Scribe (Shilpa Martinez) Provider Attestation: All medical record entries made by the Scribe were at my direction and personally dictated by me. I have reviewed the chart and agree that the record accurately reflects my personal performance of the history, physical exam, medical decision making, and the department course for this patient. I have also personally directed, reviewed, and agree with the discharge instructions and disposition.
[2018-03-25 20:04] LABS: BASO # 0.1 K/uL (0.0-0.2); EOS # 0.4 K/uL (0.0-0.7); EOS % 4.2 % (0.0-4.0); HEMOGLOBIN 16.3 g/dL (12.0-18.0); LYMPH % 31.8 % (20.0-40.0); MEAN CELL VOLUME 87.3 fL (80.0-94.0); MEAN CORPUSCULAR HEMOGLOBIN 30.7 pg (27.0-31.0); MEAN CORPUSCULAR HGB CONC 35.1 g/dL (33.0-37.0); MEAN PLATELET VOLUME 8.2 fL (7.2-11.7); MONO # 1.1 K/uL (0.0-0.8); MONO % 11.5 % (0.0-10.0); NEUT # 4.9 K/uL (1.8-7.0); NEUT % 51.5 % (50.0-75.0); NRBC % 0.1 % (0.0-2.0); RBC 5.32 Mil/uL (4.40-5.90); RED CELL DISTRIBUTION WIDTH 13.7 % (11.5-14.5); WHITE BLOOD COUNT 9.5 K/uL (4.8-10.8)
[2018-03-25 20:06] LABS: SQUAMOUS EPITHIAL < 1 /hpf (0-5); URINE BILIRUBIN NEGATIVE (NEGATIVE); URINE BLOOD NEGATIVE (NEGATIVE); URINE CLARITY Clear (Clear); URINE COLOR Yellow (YELLOW); URINE GLUCOSE (UA) 3+ mg/dL (Normal); URINE LEUKOCYTE ESTERASE NEG Leu/uL (Negative); URINE PROTEIN 1+ mg/dL (NEGATIVE); URINE UROBILINOGEN NORMAL mg/dL (0.2-1.0)
[2018-03-25] MEDS ORDERED: Sodium Chloride 0.9% 1,000 ML ONE (20:18)
[2018-03-25 20:20] LABS: CALCIUM 9.8 mg/dl (8.6-10.4); GFR AFRICAN-AMERICAN > 60; GFR NON-AFRICAN AMERICAN 53; LIPASE 193 U/L (23-300)
[2018-03-25 20:23] LABS: ALB/GLOB RATIO 1.1 (1.0-2.1); ALBUMIN 4.9 g/dL (3.5-5.0); ALT/SGPT 25 U/L (21-72); AST/SGOT 40 U/L (17-59); BLOOD UREA NITROGEN 25 mg/dL (9-20)
[2018-03-25 21:27] VITALS: BP 115/75; PULSE 82; RESP 20; TEMP 98.8
[2018-03-25 21:47] VITALS: O2SAT 96
--- NOTE | 2018-03-26 08:27 | RAD ---
PROCEDURE: Radiographs of the chest and abdomen (obstructive series) HISTORY: abd pain COMPARISON: No prior. TECHNIQUE: AP radiograph of the chest, with upright and supine radiographs of the abdomen. FINDINGS: CHEST: Lungs: Clear. Cardiovascular: Normal size heart. No pulmonary vascular congestion. Pleura: No pleural fluid. No pneumothorax. Other findings: None. ABDOMEN AND PELVIS: Bowel: Unremarkable bowel gas pattern. No evidence of mechanical obstruction. Free air: None. Bones: Unremarkable. Other findings: None. IMPRESSION: Unremarkable radiographs of chest and abdomen. No evidence of mechanical bowel obstruction.
== END 2018-03-25 22:08 | disposition home or self-care (01) ==
LOC: C.ER 18:59
DX: K59.00 Constipation, unspecified (principal); R10.9 Unspecified abdominal pain
CPT/HCPCS: 74022; 80053; 81001; 83690; 85025; 96360; 99284; J7040

== ENCOUNTER 2018-10-01 07:08 | Day surgery (SDC) | payer MEDICAID ==
[2018-10-01] MEDS ORDERED: Lactated Ringer's 500 ML IV ONE ×2 (08:54)
[2018-10-01 09:56] VITALS: RESP 22
[2018-10-01 10:37] VITALS: BP 127/77; PULSE 79; TEMP 98.3; O2SAT 98
== END 2018-10-01 10:30 | disposition home or self-care (01) ==
LOC: C.ENDO 07:08
PROVIDERS: ATTEND Internal Medicine Gastroenterology
DX: Z12.11 Encounter for screening for malignant neoplasm of colon (principal); K57.30 Diverticulosis of large intestine without perforation or abscess without bleeding; K64.1 Second degree hemorrhoids
CPT/HCPCS: 45378; 82948; J7120

== ENCOUNTER 2019-01-25 21:33 | Emergency (ER) | payer MEDICAID ==
[2019-01-25 21:33] VITALS: BMI 38.7
[2019-01-25 21:43] VITALS: BP 143/93; PULSE 98; RESP 20; TEMP 97.6; O2SAT 94
[2019-01-25] MEDS ORDERED: Oxycodone/Acetaminophen 5/325 mg Tab PO STA (22:03)
[2019-01-25] MEDS ORDERED: Oxycodone/Acetaminophen 5/325 mg Tab ONE (22:09)
--- NOTE | 2019-01-25 22:44 | C.PDOC ---
History Of Present Illness 53 year old male is brought to the ED by EMS for evaluation of left hip and left sided head pain. Patient reports that while getting out of the shower he slipped and landed on the left side of his body. Patient reports LOC, patient states he woke up when EMS arrived to his home unsure how long he was on the floor. Patient also c/o nausea now. Patient denies visual changes, vomit, dizziness, neck pain, weakness, numbness. - HPI Time Seen by Provider: 01/25/19 21:54 Chief Complaint (Nursing): Trauma History Per: Patient, EMS History/Exam Limitations: no limitations Onset/Duration Of Symptoms: Hrs Injury Occurred (Timing): Just Before Arrival Location Of Injury: Left: Hand, Hip Recent travel outside of the [place] States: No Additional History Per: Patient - Fall Fall:Prior To Injury: Slipped Past Medical History Reviewed: Historical Data, Nursing Documentation, Vital Signs Vital Signs: Last Vital Signs Temp 97.6 F 01/25/19 21:36 Pulse 98 H 01/25/19 21:36 Resp 20 01/25/19 21:36 BP 143/93 H 01/25/19 21:36 Pulse Ox 94 L 01/25/19 21:36 - Medical History PMH: Anxiety, Arthritis, Asthma, Back Problems, COPD, Depression, Diabetes, HTN, Hypercholesterolemia, Hyperlipidemia, Hypothyroidism, Chronic Kidney Disease, Sleep Apnea Surgical History: No Surg Hx Family History: States: Unknown Family Hx - Social History Hx Tobacco Use: No Hx Alcohol Use: No Hx Substance Use: No - Immunization History Hx Tetanus Toxoid Vaccination: No Hx Influenza Vaccination: Yes Hx Pneumococcal Vaccination: Yes Review Of Systems Constitutional: Negative for: Fever, Chills Cardiovascular: Negative for: Chest Pain Respiratory: Negative for: Shortness of Breath Gastrointestinal: Positive for: Nausea. Negative for: Vomiting, Abdominal Pain Musculoskeletal: Positive for: Leg Pain Skin: Negative for: Rash Neurological: Positive for: Headache. Negative for: Weakness, Numbness, Dizziness Physical Exam - Physical Exam Appears: Non-toxic, No Acute Distress Skin: Normal Color, Warm, Dry Head: Atraumatic, Normacephalic Eye(s): bilateral: Normal Inspection, PERRL, EOMI Oral Mucosa: Moist Neck: Normal ROM, No Midline Cervical Tenderness, Supple Chest: Symmetrical Cardiovascular: Rhythm Regular Respiratory: Normal Breath Sounds, No Rales, No Rhonchi, No Wheezing Gastrointestinal/Abdominal: Soft, No Tenderness, No Guarding, No Rebound Extremity: Normal ROM, Tenderness (left hip to palpation), Capillary Refill (< 2 seconds), No Swelling Pulses: Left Dorsalis Pedis: Normal, Right Dorsalis Pedis: Normal Neurological/Psych: Oriented x3, Normal Speech, Normal Cognition, Normal Motor, Normal Sensation Gait: Steady ED Course And Treatment O2 Sat by Pulse Oximetry: 94 - Other Rad left hip xray X-Ray: Interpreted by Me Interpretation: No fracture, no dislocation Progress Note: Plan: - Left hip X-Ray. - CT head. - Percocet 1 tab. 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 - On 01/18/2019 Patient was given prescriptions for Valium 5 mg and 10 mg. 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 - Scribe Statement The provider has reviewed the documentation as recorded by the Scribe Logan Houes All medical record entries made by the Scribe were at my direction and personally dictated by me. I have reviewed the chart and agree that the record accurately reflects my personal performance of the history, physical exam, medical decision making, and the department course for this patient. I have also personally directed, reviewed, and agree with the discharge instructions and disposition. Physician Patient Turnover Patient Signed Over To: Fany Scott Handoff Comments: Pending CT head and Dispo
--- NOTE | 2019-01-26 07:53 | CT ---
Date of service: 01/25/2019 PROCEDURE: CT HEAD WITHOUT CONTRAST. HISTORY: fall COMPARISON: None available. TECHNIQUE: Axial computed tomography images were obtained through the head/brain without intravenous contrast. Radiation dose: Total exam DLP = 1145.86 mGy-cm. This CT exam was performed using one or more of the following dose reduction techniques: Automated exposure control, adjustment of the mA and/or kV according to patient size, and/or use of iterative reconstruction technique. FINDINGS: HEMORRHAGE: No intracranial hemorrhage. BRAIN: No mass effect or edema. Scattered focal lucencies in the subcortical and periventricular white matter suggestive for chronic microvascular ischemic change. . VENTRICLES: Unremarkable. No hydrocephalus. CALVARIUM: Unremarkable. PARANASAL SINUSES: Unremarkable as visualized. No significant inflammatory changes. MASTOID AIR CELLS: Unremarkable as visualized. No inflammatory changes. OTHER FINDINGS: None. IMPRESSION: No acute intracranial abnormality. If symptoms persists, consider correlation with MRI. A preliminary report was generated at 11:48 p.m. on 01/25/[address] Harman Carpio from [employer].
--- NOTE | 2019-01-26 08:22 | RAD ---
Date of service: 01/25/2019 PROCEDURE: HISTORY: fall COMPARISON: None TECHNIQUE: AP pelvis and frog's leg view. FINDINGS: No fracture or dislocation. Sacroiliac and pubic symphyseal joints unremarkable. Bone mineralization grossly normal in appearance Bilateral degenerative changes of each hip joint. Scattered osseous hypertrophic changes greater trochanter and inferior ischial tuberosities. IMPRESSION: No fracture or dislocation. Other findings as above.
== END 2019-01-26 00:36 | disposition home or self-care (01) ==
LOC: C.ER 21:33
DX: S70.02XA Contusion of left hip, initial encounter (principal); S09.90XA Unspecified injury of head, initial encounter; W01.0XXA Fall on same level from slipping, tripping and stumbling without subsequent striking against object, initial encounter

== ENCOUNTER 2019-01-29 10:37 | Emergency (ER) | payer MEDICAID | END 2019-01-29 14:24 | disposition home or self-care (01) | LOC: C.ER 10:37 ==

== ENCOUNTER 2019-02-15 07:48 | Outpatient (CLI) | payer MEDICAID | END 2019-02-15 07:49 | disposition home or self-care (01) | LOC: C.MRIC 07:49 ==

== ENCOUNTER 2019-04-02 22:41 | Emergency (ER) | payer MEDICAID ==
[2019-04-02 22:41] VITALS: BMI 38.7
--- NOTE | 2019-04-03 00:15 | C.PDOC ---
History Of Present Illness 53 year old male presents to the ED c/o feeling SOB after his apartment was having mold removed. Patient reports having history of asthma. Patient denies fever, chills, facial swelling, lip or tongue swelling, sensation of throat closing. Time Seen by Provider: 04/02/19 23:11 Chief Complaint (Nursing): Shortness Of Breath History Per: Patient History/Exam Limitations: no limitations Onset/Duration Of Symptoms: Days Current Symptoms Are (Timing): Still Present Initiating Event: Exposure To Mold Quality: Tightness Current Respiratory Medications: See Home Med List Recent travel outside of the [place] States: No Additional History Per: Patient Past Medical History Reviewed: Historical Data, Nursing Documentation, Vital Signs Vital Signs: Last Vital Signs Temp 99 F 04/02/19 22:52 Pulse 74 04/02/19 22:52 Resp 14 04/02/19 23:10 BP 127/77 04/02/19 22:52 Pulse Ox 92 L 04/02/19 23:10 Primary Care Provider: Juancarlos Bailey Medical History PMH: Anxiety, Arthritis, Asthma, Back Problems, COPD, Depression, Diabetes, HTN, Hypercholesterolemia, Hyperlipidemia, Hypothyroidism, Chronic Kidney Disease, Sleep Apnea Surgical History: No Surg Hx Family History: States: Unknown Family Hx - Social History Hx Tobacco Use: No Hx Alcohol Use: No Hx Substance Use: No - Immunization History Hx Tetanus Toxoid Vaccination: No Hx Influenza Vaccination: Yes Hx Pneumococcal Vaccination: Yes Review Of Systems Constitutional: Negative for: Fever, Chills ENT: Negative for: Mouth Swelling, Throat Swelling Respiratory: Positive for: Cough, Wheezing. Negative for: Shortness of Breath Gastrointestinal: Negative for: Nausea, Vomiting Musculoskeletal: Negative for: Neck Pain Skin: Negative for: Rash Neurological: Negative for: Weakness, Numbness, Headache Physical Exam - Physical Exam Appears: Non-toxic, No Acute Distress Skin: Normal Color, Warm, Dry Head: Atraumatic, Normacephalic Eye(s): bilateral: Normal Inspection Ear(s): Bilateral: Normal Oral Mucosa: Moist Throat: Normal, No Erythema, No Exudate Neck: Normal ROM, Supple Chest: Symmetrical Cardiovascular: Rhythm Regular Respiratory: Normal Breath Sounds, No Rales, No Rhonchi, No Wheezing Gastrointestinal/Abdominal: Soft, No Tenderness Extremity: Normal ROM Neurological/Psych: Oriented x3, Normal Speech, Normal Cognition Gait: Steady ED Course And Treatment O2 Sat by Pulse Oximetry: 92 Progress Note: Plan: - Benadryl 25 mg PO. - Prednisone 40 mg PO. - Pepcid 20 mg PO Disposition Counseled Patient/Family Regarding: Diagnosis, Need For Followup, Rx Given - Disposition Referrals: Juancarlos Bailey DO [Staff Provider] - Disposition: HOME/ ROUTINE Disposition Time: 00:40 Condition: STABLE Prescriptions: DiphenhydrAMINE [Benadryl] 25 mg PO Q6 PRN #20 cap PRN Reason: Itching / Pruritus predniSONE [predniSONE Tab] 40 mg PO DAILY #6 tab Instructions: Allergy to Mold Forms: [employer] (Khmer) Print Language: SPANISH - Clinical Impression Clinical Impression: Allergic reaction, Mold exposure - Scribe Statement The provider has reviewed the documentation as recorded by the Scribe Logan House All medical record entries made by the Scribe were at my direction and personally dictated by me. I have reviewed the chart and agree that the record accurately reflects my personal performance of the history, physical exam, medical decision making, and the department course for this patient. I have also personally directed, reviewed, and agree with the discharge instructions and disposition.
[2019-04-03 00:49] VITALS: BP 100/60; PULSE 73; RESP 17; TEMP 98; O2SAT 96
== END 2019-04-03 00:49 | disposition home or self-care (01) ==
LOC: C.ER 22:41
DX: T78.40XA Allergy, unspecified, initial encounter (principal); Z77.120 Contact with and (suspected) exposure to mold (toxic)

== ENCOUNTER 2019-04-10 13:04 | Emergency (ER) | payer MEDICAID ==
[2019-04-10 13:04] VITALS: BMI 38.7
[2019-04-10 13:26] VITALS: BP 129/81; PULSE 79; RESP 17; TEMP 98.6; O2SAT 96
--- NOTE | 2019-04-10 17:09 | C.PDOC ---
History Of Present Illness 53 y/o male presents to ED c/o spasms/cramps in his intestines for approx 1 month. He states he has had a colonoscopy done by Dr. Milian last month, however it was a "poor prep" and he is supposed to have a repeat colonoscopy soon. He states he was given Rx for Bentyl in the meantime, which helped his symptoms. The medication has run out, and he is requesting a refill. Patient denies current abdominal pain, nausea, vomiting, diarrhea, fever, or dysuria. Time Seen by Provider: 04/10/19 13:26 Chief Complaint (Nursing): Abdominal Pain History Per: Patient History/Exam Limitations: no limitations Onset/Duration Of Symptoms: Persistent Severity: Mild Quality Of Discomfort: Cramping Past Medical History Reviewed: Historical Data, Nursing Documentation, Vital Signs Vital Signs: Last Vital Signs Temp 98.6 F 04/10/19 13:23 Pulse 79 04/10/19 13:23 Resp 17 04/10/19 13:23 BP 129/81 04/10/19 13:23 Pulse Ox 96 04/10/19 13:23 Primary Care Provider: Juancarlos Bailey - Medical History PMH: Anxiety, Arthritis, Asthma, Back Problems, COPD, Depression, Diabetes, HTN, Hypercholesterolemia, Hyperlipidemia, Hypothyroidism, Chronic Kidney Disease, Sleep Apnea Family History: States: No Known Family Hx - Social History Hx Tobacco Use: No Hx Alcohol Use: No Hx Substance Use: No - Immunization History Hx Tetanus Toxoid Vaccination: Yes Hx Influenza Vaccination: Yes Hx Pneumococcal Vaccination: Yes Review Of Systems Constitutional: Negative for: Fever, Chills Cardiovascular: Negative for: Chest Pain Respiratory: Negative for: Shortness of Breath Gastrointestinal: Positive for: Abdominal Pain. Negative for: Nausea, Vomiting, Diarrhea Genitourinary: Negative for: Dysuria, Hematuria Skin: Negative for: Rash Physical Exam - Physical Exam Appears: Well, Non-toxic, No Acute Distress Skin: Warm, Dry Head: Normacephalic Eye(s): bilateral: Normal Inspection Oral Mucosa: Moist Neck: Supple Cardiovascular: Rhythm Regular, No Murmur Respiratory: Normal Breath Sounds, No Rales, No Rhonchi, No Wheezing Gastrointestinal/Abdominal: Normal Exam, Bowel Sounds, Soft, No Tenderness, Other (obese abdomen) Back: Normal Inspection, No CVA Tenderness Extremity: Bilateral: Atraumatic, Normal Color And Temperature Neurological/Psych: Oriented x3 ED Course And Treatment O2 Sat by Pulse Oximetry: 96 (RA) Pulse Ox Interpretation: Normal Progress Note: Patient given PO Bentyl, as well as Rx for same. He was instructed to follow up with Dr. Milian as scheduled, and understands he should return to ED if symptoms worsen. Disposition Counseled Patient/Family Regarding: Diagnosis, Need For Followup, Rx Given - Disposition Referrals: Juancarlos Bailey DO [Staff Provider] - Albaro Milian MD [Staff Provider] - Disposition: HOME/ ROUTINE Disposition Time: 13:55 Condition: STABLE Additional Instructions: FOLLOW UP WITH DR MILIAN WITHIN 1 WEEK AND SCHEDULE YOUR COLONOSCOPY USE BENTYL NEEDED RETURN TO ER IF YOUR SYMPTOMS WORSEN Prescriptions: Dicyclomine [Bentyl] 20 mg PO Q6 PRN #20 tab PRN Reason: ABDOMINAL CRAMPING Instructions: Diverticulosis (DC) Forms: [employer] (American) Print Language: VIET[place]ESE - Clinical Impression Clinical Impression: Abdominal colic, Intestinal cramps - Scribe Statement The provider has reviewed the documentation as recorded by the Huang Blanchard Provider Attestation: All medical record entries made by the Huang were at my direction and personally dictated by me. I have reviewed the chart and agree that the record accurately reflects my personal performance of the history, physical exam, medical decision making, and the department course for this patient. I have also personally directed, reviewed, and agree with the discharge instructions and disposition.
== END 2019-04-10 14:10 | disposition home or self-care (01) ==
LOC: C.ER 13:04
DX: R10.84 Generalized abdominal pain (principal)

== ENCOUNTER 2019-04-20 09:22 | Outpatient (CLI) | payer MEDICAID | END 2019-04-20 09:23 | disposition home or self-care (01) | LOC: C.LAB 09:22 | DX: N18.3 Chronic kidney disease, stage 3 (moderate) (principal) ==